=== PATIENT | male | born 1990 | race Caucasian/White ===

== ENCOUNTER → 2017-05-14 | Outpatient (REF) ==
[~2017-05-14] MED LIST: ADVIL200 MG PO; AMBIEN 10MG10 MG PO; AMBIEN 5MG TABLE5 MG PO; AZATHIOPRINE50 MG PO; BALSALAZIDE DI750 M1 PO; CANASA 1000MG1000 MG RC; CENTRUM1 TAB PO; COLAZAL PO; LAMISIL250 MG PO; LEVOXYL0.137 MG PO; NALTREXONE50 MG PO; NAPROSYN500 MG PO; NO HOME MEDICATIONS; NORCO 325 MG-51 TAB PO; PERCOCET 325 MG1 TA2 PO; PERCOCET 5/321 UDTAB PO; PHENERGAN 25 TA25 MG PO; PREDNISONE 5MG5 MG; PREDNISONE10 MG PO; PREDNISONE20 MG PO; REVIA 50MG TABL50 MG PO; SLOW FE45 MG PO; SYNTHROID0.137 MG PO; VITAMIN C PUR1000 MG; [UNRECOGNIZED DRUG - CODE] PO; [UNRECOGNIZED DRUG - OTHER] PO
== END ==
LOC: ZLAB.WCH 18:07
DX: Z01.89 Encounter for other specified special examinations (principal)